=== PATIENT | female | born 1945 | race Caucasian/White ===

== ENCOUNTER 2023-07-08 08:46 | Day surgery (SDC) | payer MEDICARE, BC ==
[~2023-07-08] VITALS: Ht 172.7 cm; Wt 81.5 kg
[2023-07-08] MEDS ORDERED: DIOVAN 40MG40 MG PO (09:32)
[2023-07-08] MEDS ORDERED: PROTONIX 40MG T40 MG PO (09:33)
[2023-07-08 09:40] VITALS: BP 136/69; PULSE 76; TEMP 97.4
[2023-07-08 11:15] VITALS: BP 124/61; PULSE 74; TEMP 97.4
[2023-07-08 11:30] VITALS: BP 117/62; PULSE 73
[2023-07-08 11:45] VITALS: BP 125/62; PULSE 70
[2023-07-08 12:00] VITALS: BP 112/74; PULSE 78
--- NOTE | 2023-07-08 12:25 | NUR ---
1115- PATIENT RETURNS TO [facility] [place] [facility] VIA CART. PT AWAKE AND ALERT. RESPIRATIONS UNLABORED. AMBULATED TO RECLINER CHAIR WITH 2:1 SBA. PT DENIES NAUSEA OR ABDOMINAL PAIN. HOOKED UP TO MONITOR AND VS OBTAINED. CALL LIGHT AT SIDE. 1128- PATIENT TOLERATING COFFEE AND ORANGE JUICE AND MUFFIN WITHOUT NAUSEA. 1135- DR. SWEENEY IN ROOM SPEAKING WITH PATIENT. 1143- D/C INSTRUCTIONS REVIEWED WITH PATIENT. PT VERBALIZED UNDERSTANDING AND A COPY OF INSTRUCTIONS PROVIDED IN D/C FOLDER. 1215- PATIENT DRESSES SELF. 1225- PATIENT DISCHARGED FROM UNIT VIA W/C TO A PERSONAL VEHICLE. PT LEFT HOSPITAL IN STABLE CONDITION.
== END 2023-07-08 12:25 | disposition home or self-care (01) ==
LOC: SDCO 08:46
DX: D12.3 Benign neoplasm of transverse colon (principal); K64.1 Second degree hemorrhoids; K57.30 Diverticulosis of large intestine without perforation or abscess without bleeding; R19.5 Other fecal abnormalities
CPT/HCPCS: J2704; J7120